=== PATIENT | female | born 1955 | race Caucasian/White ===

== ENCOUNTER 2018-01-30 10:10 | Outpatient (CLI) | payer OTHER | END 2018-01-30 10:11 | disposition home or self-care (01) | LOC: BICMAMMO 10:10 | PROVIDERS: ATTEND Obstetrics & Gynecology | DX: Z12.31 Encounter for screening mammogram for malignant neoplasm of breast (principal); Z98.82 Breast implant status; Z80.3 Family history of malignant neoplasm of breast | CPT/HCPCS: 77063; 77067 ==

== ENCOUNTER 2020-01-20 13:36 | Outpatient (CLI) | payer OTHER ==
--- NOTE | 2020-01-20 14:30 | MMO ---
Bilateral MAMMO Bilat Diag [facility]DI+VAL. CLINICAL HISTORY: Patient is 65 years old and is seen for diagnostic exam. The patient has no family history of breast cancer. The patient has no personal history of cancer. VIEWS: The views performed were: bilateral craniocaudal with tomosynthesis; bilateral mediolateral oblique with tomosynthesis; and bilateral mediolateral with tomosynthesis. FILMS COMPARED: The present examination has been compared to prior imaging studies performed at [facility] on 05/09/2016, at [facility] on 01/30/2018 and 01/20/2020, and at [facility] on 09/01/2013. This study has been interpreted with the assistance of computer-aided detection. MAMMOGRAM FINDINGS: The breasts are extremely dense, which may lower the sensitivity of mammography. Benign calcifications are noted bilaterally. Bilateral implants are stable. No mammographic or sonograhic abnormality is seen at the site of palpable concern in the left breast. There are no suspicious masses, suspicious calcifications, or new areas of architectural distortion. IMPRESSION: THERE IS NO MAMMOGRAPHIC EVIDENCE OF MALIGNANCY. A ROUTINE FOLLOW-UP MAMMOGRAM IN 1 YEAR IS RECOMMENDED. THE RESULTS OF THIS EXAM WERE SENT TO THE PATIENT. ACR BI-RADS Category 2 - Benign finding MAMMOGRAPHY NOTE: 1. A negative mammogram report should not delay a biopsy if a dominant of clinically suspicious mass is present. 2. Approximately 10% to 15% of breast cancers are not detected by mammography. 3. Adenosis and dense breasts may obscure an underlying neoplasm. Reported by: JUAN VILLEDA MD Electonically Signed: [id number]
--- NOTE | 2020-01-20 14:34 | ULT ---
LIMITED LEFT BREAST ULTRASOUND: 01/20/20 HISTORY: Palpable abnormalities at the 6 and 7 o'clock position of the left breast. FINDINGS: Correlation is made with mammogram same date. Sonographic evaluation of the region of palpable concern at the 6 and 7 o'clock position about 4 cm f rom the nipple demonstrate no abnormality. IMPRESSION: BIRADS 2: Benign Finding(s) Routine annual screening mammography (for women over age 40). POS: OFF
== END 2020-01-20 13:37 | disposition home or self-care (01) ==
LOC: BICMAMMO 13:36
DX: N63.20 Unspecified lump in the left breast, unspecified quadrant (principal); N60.02 Solitary cyst of left breast
CPT/HCPCS: 77066; G0279